=== PATIENT | male | born 1960 | race Caucasian/White ===

== ENCOUNTER 2021-10-29 07:46 | Emergency (ER) | payer MEDICARE, OTHER ==
[2021-10-29 08:47] LABS: HEMOGLOBIN 12.1 gm/dl (14.0-17.5); RED BLOOD COUNT 4.04 M/UL (4.20-5.50); WHITE BLOOD COUNT 9.2 K/UL (4.5-11.0)
[2021-10-29 09:10] LABS: BUN/CREATININE RATIO 13 (0-10)
[2021-10-29] MEDS ORDERED: BACITRACIN28.4 GM TP (10:27)
[2021-10-29] MEDS ORDERED: PROBIOTIC & AC1 EACH PO (10:27)
[2021-10-29] MEDS ORDERED: CEPHALEXIN500 MG PO (10:27)
== END 2021-10-29 10:55 | disposition home or self-care (01) ==
LOC: ER1 07:46
PROVIDERS: Physician Assistant
DX: E11.621 Type 2 diabetes mellitus with foot ulcer (principal); L97.519 Non-pressure chronic ulcer of other part of right foot with unspecified severity; E78.5 Hyperlipidemia, unspecified; E11.51 Type 2 diabetes mellitus with diabetic peripheral angiopathy without gangrene; F17.210 Nicotine dependence, cigarettes, uncomplicated
CPT/HCPCS: 73700; 80053; 82550; 82553; 84484; 85025; 85652; 86140; 87040; 94760; 99284

== ENCOUNTER 2021-11-08 09:18 | Emergency (ER) | payer MEDICARE, OTHER ==
[~2021-11-08 09:18] MED LIST: BACITRACIN28.4 GM TP; CEPHALEXIN500 MG PO; PROBIOTIC & AC1 EACH PO
[2021-11-08 10:34] LABS: HEMOGLOBIN 11.9 gm/dl (14.0-17.5); RED BLOOD COUNT 4.02 M/UL (4.20-5.50); WHITE BLOOD COUNT 10.3 K/UL (4.5-11.0)
[2021-11-08 11:05] LABS: BUN/CREATININE RATIO 15 (0-10)
[2021-11-08] MEDS ORDERED: AMOX TR-K CLV1 EAC4 PO (14:51)
== END 2021-11-08 15:00 | disposition left against medical advice (07) ==
LOC: ER1 09:18
PROVIDERS: Emergency Medicine
DX: E11.621 Type 2 diabetes mellitus with foot ulcer (principal); L97.519 Non-pressure chronic ulcer of other part of right foot with unspecified severity; I10 Essential (primary) hypertension; J44.9 Chronic obstructive pulmonary disease, unspecified; E78.5 Hyperlipidemia, unspecified
CPT/HCPCS: 73630; 80053; 85025; 85652; 86140; 87040; 96374; 96375; 99283; J2270; J2405; J2543

== ENCOUNTER 2021-11-10 10:57 | Inpatient (IN) | payer MEDICARE, OTHER ==
[~2021-11-10] VITALS: Ht 180.3 cm; Wt 70.3 kg
[~2021-11-10 10:57] MED LIST changes: +AMOX TR-K CLV1 EAC4 PO
[2021-11-10 12:45] LABS: BUN/CREATININE RATIO 16 (0-10)
[2021-11-10 12:55] LABS: HEMOGLOBIN 12.1 gm/dl (14.0-17.5); RED BLOOD COUNT 4.04 M/UL (4.20-5.50); WHITE BLOOD COUNT 8.8 K/UL (4.5-11.0)
[2021-11-11 07:08] LABS: HEMOGLOBIN 12.9 gm/dl (14.0-17.5); RED BLOOD COUNT 4.37 M/UL (4.20-5.50); WHITE BLOOD COUNT 8.2 K/UL (4.5-11.0)
[2021-11-11 07:32] LABS: BUN/CREATININE RATIO 12 (0-10)
[2021-11-11] MEDS ORDERED: VITAMIN D21250 MCG PO (13:32)
[2021-11-11] MEDS ORDERED: HYDROCODON-ACE1 EAC2 PO (13:34)
[2021-11-11] MEDS ORDERED: LORADAMED10 MG PO (13:35)
[2021-11-11] MEDS ORDERED: ZESTRIL20 MG PO (13:35)
[2021-11-11] MEDS ORDERED: NEURONTIN300 MG PO (13:36)
[2021-11-11] MEDS ORDERED: LISINOPRIL-HCT1 EAC1 PO (13:37)
[2021-11-11] MEDS ORDERED: METFORMIN HCL1000 MG PO (13:38)
[2021-11-11] MEDS ORDERED: XARELTO2.5 MG PO (13:39)
[2021-11-11] MEDS ORDERED: SANTYL OINT 3030 GM TP (13:39)
[2021-11-11] MEDS ORDERED: LANTUS SOL100 UNIT/1 SQ (13:41)
== END 2021-11-11 17:00 | disposition left against medical advice (07) | DRG 637 ==
LOC: ER1 10:57 → M/S 12:12 → CDU 12:12 → M/S 16:01
PROVIDERS: Emergency Medicine; Physician Assistant Medical; ADMIT Internal Medicine
DX: E11.621 Type 2 diabetes mellitus with foot ulcer (principal); U07.1 COVID-19; M86.8X7 Other osteomyelitis, ankle and foot; L03.116 Cellulitis of left lower limb; E11.69 Type 2 diabetes mellitus with other specified complication; L97.519 Non-pressure chronic ulcer of other part of right foot with unspecified severity; L03.031 Cellulitis of right toe; E78.5 Hyperlipidemia, unspecified; I10 Essential (primary) hypertension; J44.9 Chronic obstructive pulmonary disease, unspecified; Z98.890 Other specified postprocedural states; Z88.8 Allergy status to other drugs, medicaments and biological substances; Z83.3 Family history of diabetes mellitus; Z80.8 Family history of malignant neoplasm of other organs or systems
CPT/HCPCS: 36415; 73630; 80048; 80053; 82962; 83735; 85025; 85027; 85652; 86140; 87040; 93925; 96374; 96375; 99283; 99284; J1650; J2060; J2270; J2405; J2543; J3370; J3475; J7070; U0002

== ENCOUNTER → 2021-12-11 | Outpatient (CLI) | payer MEDICARE, OTHER ==
[~2021-12-11] MED LIST changes: +HYDROCODON-ACE1 EAC2 PO; +LANTUS SOL100 UNIT/1 SQ; +LISINOPRIL-HCT1 EAC1 PO; +LORADAMED10 MG PO; +METFORMIN HCL1000 MG PO; +NEURONTIN300 MG PO; +SANTYL OINT 3030 GM TP; +VITAMIN D21250 MCG PO; +XARELTO2.5 MG PO; +ZESTRIL20 MG PO
== END ==
LOC: WCC 07:08
DX: E11.621 Type 2 diabetes mellitus with foot ulcer (principal); L97.512 Non-pressure chronic ulcer of other part of right foot with fat layer exposed; Z72.0 Tobacco use; J44.9 Chronic obstructive pulmonary disease, unspecified; I10 Essential (primary) hypertension; E11.40 Type 2 diabetes mellitus with diabetic neuropathy, unspecified; M79.671 Pain in right foot; Z86.718 Personal history of other venous thrombosis and embolism; Z79.4 Long term (current) use of insulin
CPT/HCPCS: 87070; 87205

== ENCOUNTER → 2021-12-18 | Outpatient (CLI) | payer MEDICARE, OTHER | END | disposition home or self-care (01) | LOC: WCC 07:16 | DX: E11.621 Type 2 diabetes mellitus with foot ulcer (principal); L97.512 Non-pressure chronic ulcer of other part of right foot with fat layer exposed; E11.40 Type 2 diabetes mellitus with diabetic neuropathy, unspecified; M79.671 Pain in right foot; I10 Essential (primary) hypertension; J44.9 Chronic obstructive pulmonary disease, unspecified; F17.200 Nicotine dependence, unspecified, uncomplicated; Z86.718 Personal history of other venous thrombosis and embolism; Z79.4 Long term (current) use of insulin ==